=== PATIENT | male | born 2000 | race Caucasian/White ===

== ENCOUNTER 2023-08-23 01:05 | Inpatient (IN) ==
[2023-08-23] MEDS ORDERED: dilTIAZem HCl 5 MG/ML 5 ML VIAL IV ONE (01:17)
[2023-08-23] MEDS ORDERED: SODIUM CHLORIDE 0.9% 1,000 ML IV STA (01:18)
[2023-08-23] MEDS ORDERED: dilTIAZem HCl 5 MG/ML 5 ML VIAL IV STA ×2 (01:18→02:14)
[2023-08-23] MEDS ORDERED: STAT IV Infusion **Titration per Protocol STA (01:18)
--- NOTE | 2023-08-23 01:27 | Emergency Department Note ---
History of Present Illness General Chief complaint: Arrhythmia/Palpitations Stated complaint: IRREG HEART BEAT,RAPID,UNCONTROLLABLE Time Seen by Provider: 08/23/23 01:13 History of Present Illness This 22-year-old gentleman presents the ER for racing heart tonight. Patient states he was out drinking alcohol on a pub crawl tonight. 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 No drug use. Patient denies chest pain, dyspnea, abdominal pain, leg pain or swelling, flulike illness, drug use or tobacco use. Patient states he is healthy with no active medical problems. Past Med/Surg History Social History Smoking Status: Never smoker Preferred Language: Bulgarian Feels Safe at Home: Yes Review of Systems A total of 10 systems reviewed and were otherwise negative Physical Exam Vital Signs Vital Signs - 24 hr 08/23/23 01:10 08/23/23 01:15 08/23/23 01:16 Temperature 36.6 C Temperature Source Oral Pulse Rate 180 H 155 H 151 H Pulse Rate [Apical] Pulse Rhythm [Apical] Pulse Strength [Apical] Respiratory Rate 18 12 Respiratory Effort / Characteristics Respiratory Depth Respiratory Pattern Blood Pressure 145/102 H 154/126 H Blood Pressure [Right Arm] Blood Pressure Mean 116 135 Blood Pressure Mean [Right Arm] Pulse Oximetry 97 Oxygen Delivery Method Room Air Oxygen Flow Rate Sepsis Recent Fever Within 48 Hours No Sepsis New/Unexplained Change in Mental Status N/A Sepsis Action Taken by Nursing No Action Required 08/23/23 01:21 08/23/23 01:27 08/23/23 01:27 Temperature Temperature Source Pulse Rate 98 H Pulse Rate [Apical] 100 H Pulse Rhythm [Apical] Regular Pulse Strength [Apical] Normal Respiratory Rate 15 21 Respiratory Effort / Characteristics Non-Labored Respiratory Depth Normal Respiratory Pattern Regular Blood Pressure 110/83 Blood Pressure [Right Arm] 110/83 Blood Pressure Mean 92 Blood Pressure Mean [Right Arm] 92 Pulse Oximetry 96 98 Oxygen Delivery Method Room Air Room Air Oxygen Flow Rate 98 Sepsis Recent Fever Within 48 Hours Sepsis New/Unexplained Change in Mental Status Sepsis Action Taken by Nursing 08/23/23 01:30 08/23/23 01:45 08/23/23 02:00 Temperature Temperature Source Pulse Rate 108 H 115 H 126 H Pulse Rate [Apical] Pulse Rhythm [Apical] Pulse Strength [Apical] Respiratory Rate 14 17 23 Respiratory Effort / Characteristics Respiratory Depth Respiratory Pattern Blood Pressure 141/105 H 141/96 H 128/100 Blood Pressure [Right Arm] Blood Pressure Mean 117 111 109 Blood Pressure Mean [Right Arm] Pulse Oximetry 97 96 95 Oxygen Delivery Method Oxygen Flow Rate Sepsis Recent Fever Within 48 Hours Sepsis New/Unexplained Change in Mental Status Sepsis Action Taken by Nursing VITALS: Vitals are noted on the nurse's note and reviewed by myself. Vital signs tachycardic GENERAL: Pleasant, in no acute distress, nondiaphoretic, well-developed well- nourished. SKIN: Capillary reflex less than 2 seconds. HEENT: Normocephalic. PERRLA. EOMI. Nares patent. Mucous membranes moist. Neck is supple without nuchal rigidity. HEART: Tachycardic irregularly irregular LUNGS: Clear to auscultation bilaterally without wheezes, rales or rhonchi. No retractions or accessory muscle use. ABDOMEN: Positive bowel sounds x 4. Normal tympanic percussion. Soft, nontender, without masses or organomegaly. Seals sign negative. No guarding or rebound tenderness. MUSCULOSKELETAL: No gross musculoskeletal defects. NEURO: Patient was alert and oriented to person place and time. No focal neurological deficits. Course Administered Medications Sodium Chloride (Nss) 1,000 mls @ 999 mls/hr IV .Q1H1M STA Stop: 08/23/23 02:18 Last Admin: 08/23/23 01:20 Dose: 999 mls/hr Documented By: ANA Diltiazem HCl 125 mg/ Dextrose 125 mls @ 5 mls/hr IV .Q24H [facility]; Protocol Stop: 09/22/23 01:29 Last Admin: 08/23/23 01:45 Dose: 5 mg/hr, 5 mls/hr Documented By: AJAY Co-signed By: TIFFANIE Discontinued Medications Diltiazem HCl (Diltiazem Hcl 5 Mg/Ml 5 Ml Vial) Confirm Administered Dose 25 mg IV .STK-MED ONE Stop: 08/23/23 01:18 Last Admin: 08/23/23 01:20 Dose: Not Given Documented By: ANA Diltiazem HCl (Diltiazem Hcl 5 Mg/Ml 5 Ml Vial) 20 mg IV NOW STA Stop: 08/23/23 01:19 Last Admin: 08/23/23 01:20 Dose: 20 mg Documented By: ANA Co-signed By: AJAY Critical Care Time Critical Care Time: Yes Total Critical Care Time: 35 I have personally spent 35 minutes of critical care time in the direct management of this patient. This includes bedside care, interpretation of diagnostic studies, and testing, discussion with consultants, patient, and family members, and other required patient management activities. This 35 minutes is in excess of all separately billable procedures. Medical Decision Making Medical Records Attestation: I reviewed the patient's medical records. Home Medications Current Medication List: was personally reviewed by il Laboratory Data Attestation: I reviewed the patient's lab results. 08/23/23 01:16 08/23/23 01:16 Lab Results 08/23/23 Range/Units 01:16 WBC 9.65 (4.8-10.8) K/ul RBC 5.95 (4.70-6.10) M/uL Hgb 17.2 (14.0-18.0) g/dl Hct 51.2 (42.0-52.0) % MCV 86.1 (80.0-100.0) fL MCH 28.9 (25.0-34.0) pg MCHC 33.6 (32.0-36.0) g/dL RDW Std Deviation 38.2 (36.4-46.3) fL RDW Coeff of Arely 12.2 (11.5-14.5) % Plt Count 314 (130-400) K/uL MPV 9.7 (9.4-12.4) fL Immature Gran % (Auto) 0.4 % Neut % (Auto) 42.4 % Lymph % (Auto) 41.7 % Mcintosh % (Auto) 10.3 % Eos % (Auto) 4.7 % Baso % (Auto) 0.5 % Neut # (Auto) 4.10 (1.40-6.50) K/uL Lymph # (Auto) 4.02 H (1.20-3.40) K/uL Mcintosh # (Auto) 0.99 H (0.11-0.59) K/uL Eos # (Auto) 0.45 (0.00-0.50) K/uL Baso # (Auto) 0.05 (0.00-0.20) K/uL Immature Gran # (Auto) 0.04 (0.01-0.20) K/uL Sodium 142 (136-145) mmol/L Potassium 3.2 L (3.5-5.1) mmol/L Chloride 104 (98-107) mmol/L Carbon Dioxide 28 (21-32) mmol/L Anion Gap 10 (3-11) BUN 11 (6-23) mg/dl Creatinine 1.03 (0.6-1.4) mg/dl Est Cr Clr Drug Dosing 125.2 ml/min Est GFR ( Amer) 118.1 ml/min Est GFR (Non-Af Amer) 101.9 ml/min BUN/Creatinine Ratio 10.7 (10-20) Glucose 104 H (70-99(Fasting)) mg/dl Calcium 10.1 (8.6-10.3) mg/dl Magnesium 2.1 (1.7-2.4) mg/dl Total Bilirubin 0.4 (0.2-1.0) mg/dl AST 20 (13-39) U/L ALT 26 (7-52) U/L Alkaline Phosphatase 77 (34-104) U/L Troponin I High Sens 2.7 (0-20) pg/ml Total Protein 8.0 (6.0-8.3) gm/dl Albumin 5.2 H (3.4-5.0) gm/dl Globulin 2.8 (2.5-4.0) gm/dl Albumin/Globulin Ratio 1.9 (0.9-2) TSH 2.020 (0.300-4.500) uIu/ml Ethyl Alcohol mg/dL 172.3 H (<10.0) mg/dl Imaging Data Attestation: I personally reviewed and interpreted this imaging study as follows: MDM Narrative Prior records/ancillary studies reviewed. Triage Nursing notes reviewed. Additional history obtained from nursing. The patient's history was concerning for palpitations. Differential diagnosis: Etiologies such as premature contractions, electrolyte abnormality, cardiac dysrhythmia, thyroid dysfunction, pulmonary embolism, infection, gastrointestinal, as well as others were entertained. Physical examination: Benign as above. ER treatment provided: IV fluids, Cardizem and Cardizem drip On reassessment the patient felt better. Diagnostic interpretation by me: An order was placed for continuous cardiac monitoring. The monitor shows a rate of 60-1 80 with a A-fib rhythm per my interpretation. The electrocardiogram was ordered for palpitaions ECG: Irregularly irregular with no acute ST-T wave changes, rate of 153. Impression A-fib with RVR independently interpreted by myself The labs Independently Interpreted by myself revealed negative troponin. Hypokalemia this was replaced orally. No worrisome leukocytosis. Stable H&H Euthyroid Imaging studies: Chest x-ray with no acute consolidation, pneumothorax or free air per my independent interpretation Consultation: A consultation was placed with the hospitalist. The case was discussed and diagnostics were reviewed. The patient was evaluated in the ER for further treatment. CHADS2 Score Sex (male 0, female 1): 0 Congestive HF (1): 0 Hypertension (1) :0 Age >75 years (1) :0 Diabetes mellitus (1):0 Stroke/TIA/TE (2): 0 Score: 0 CHADS2 Unadjusted ischemic stroke rate (% per year) 0: 0.6% 1: 3.0% 2: 4.2% 3: 7.1% 4: 11.1% 5: 12.5% 6: 13.0% This appears to be consistent with new onset A-fib with RVR. This could be holiday heart. Patient has been drinking alcohol heavily past few days. Patient is agreeable treatment plan of admission. Medicine was consulted and the case discussed. Patient was admitted to the medical service for further evaluation and workup. Patient's heart rate improved with Cardizem and drip. He was medicated as above. By the evaluation outlined above emergent etiologies such as electrolyte abnormality, thyroid dysfunction, pulmonary embolism, infection, as well as others were deemed relatively unlikely. The pt informed about the findings as listed above. All questions were answered and pleased with the treatment. The chart was completed utilizing [employer] Speech voice recognition software. Grammatical errors, random word insertions, pronoun errors, and incomplete sentences are an occassional consequence of this system due to software limitations, ambient noise, and hardware issues. Any formal questions or concerns about the content, text, or information contained within the body of this dictation should be directly addressed to the physician pastrycook's assistant for clarification. Impression & Plan New onset atrial fibrillation, Atrial fibrillation with rapid ventricular response, Hypokalemia, Alcohol intoxication Discharge Plan Visit Data Chief Complaint: Arrhythmia/Palpitations Stated Complaint: IRREG HEART BEAT,RAPID,UNCONTROLLABLE ED Provider: Gem Cortez ED Midlevel Provider: Muna Delcid Discharge Problem: New onset atrial fibrillation, Atrial fibrillation with rapid ventricular response, Hypokalemia, Alcohol intoxication Patient Disposition: Admitted As Inpatient Condition: Good Forms Stand Alone Forms: [facility] Referrals Referrals: PCP,NO [Primary Care Provider] -
[2023-08-23] MEDS ORDERED: dilTIAZem HCL 125 MG in DEXTROSE 5% 100 ML IV SCH (01:30)
[2023-08-23 01:40] LABS: Basophils # (auto) 0.05 K/uL (0.00-0.20); Basophils % (auto) 0.5 %; Eosinophils # (auto) 0.45 K/uL (0.00-0.50); Eosinophils % (auto) 4.7 %; Hematocrit (blood only) 51.2 % (42.0-52.0); Hemoglobin 17.2 g/dl (14.0-18.0); Immature Granulocytes # (auto) 0.04 K/uL (0.01-0.20); Immature Granulocytes % (auto) 0.4 %; Lymphocytes # (auto) 4.02 K/uL (1.20-3.40); Lymphocytes % (auto) 41.7 %; Mean Corpuscular Hemoglobin 28.9 pg (25.0-34.0); Mean Corpuscular Hgb Conc 33.6 g/dL (32.0-36.0); Mean Corpuscular Volume 86.1 fL (80.0-100.0); Mean Platelet Volume 9.7 fL (9.4-12.4); Monocytes # (auto) 0.99 K/uL (0.11-0.59); Monocytes % (auto) 10.3 %; Neutrophils % (auto) 42.4 %; Platelet Count 314 K/uL (130-400); RDW Coefficient of Variation 12.2 % (11.5-14.5); RDW Standard Deviation 38.2 fL (36.4-46.3); Red Blood Count 5.95 M/uL (4.70-6.10); White Blood Count 9.65 K/ul (4.8-10.8)
[2023-08-23 01:58] LABS: Albumin Globulin Ratio 1.9 (0.9-2); Albumin Level 5.2 gm/dl (3.4-5.0); BUN Creatinine Ratio 10.7 (10-20); Bilirubin,Total 0.4 mg/dl (0.2-1.0); Calcium 10.1 mg/dl (8.6-10.3); Creatinine Clr Calc Pharmacy 125.2 ml/min; Est GFR (African American) 118.1 ml/min; Est GFR (Non-African American) 101.9 ml/min; Globulin 2.8 gm/dl (2.5-4.0); Magnesium 2.1 mg/dl (1.7-2.4); Potassium 3.2 mmol/L (3.5-5.1)
[2023-08-23 02:04] LABS: Troponin I High Sensitivity 2.7 pg/ml (0-20)
[2023-08-23] MEDS ORDERED: POTASSIUM CHLORIDE 10 MEQ TABCR PO STA (02:08)
[2023-08-23 02:14] LABS: Thyroid Stimulating Hormone 2.02 uIu/ml (0.300-4.500)
[2023-08-23] MEDS ORDERED: METOPROLOL TARTRATE 25 MG TAB PO STA (02:16)
[2023-08-23] MEDS ORDERED: Patient's ALLERGY Info needs ENTERED STA (02:20)
[2023-08-23] MEDS ORDERED: SODIUM CHLOR 0.45% + 20MEQ KCL 20 MEQ/1,000 ML BAG IV STA (02:21)
[2023-08-23 02:43] LABS: Partial Thromboplastin Time 29 Seconds (21-31)
--- NOTE | 2023-08-23 03:01 | History & Physical Report ---
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 IV heparin Full code Text document was generated using [employer] voice recognition software. It may contain grammatical or spelling errors. Kindly contact undersigned for clarification of any documentation item in question. History of Present Illness Chief Complaint: Palpitations Primary Care Provider: NO PCP History obtained from patient and records. Patient is a resident of [facility] who is in town to celebrate the college graduation of a friend. No significant medical history. Patient was celebrating with his buddies at a local bar last night when he experienced palpitations, heart racing sensation. No actual chest pain or shortness of breath. Might have been drinking alcohol more than usual. Patient denies alcohol abuse. No previous episodes. Patient noted to be in rapid A-fib upon arrival at the ER. IV Cardizem bolus followed by infusion initiated at the ER. 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 Allergies Allergy/AdvReac Type Severity Reaction Status Date / Time grass pollen Allergy "wood Verified 08/23/23 03:22 grass" Home Medications Medication Instructions Recorded Confirmed Type Beet Root 2 tabs PO QAM 08/23/23 08/23/23 History ashwagandha root extract 300 mg 300 mg PO QAM 08/23/23 08/23/23 History tablet Past Med/Surg History Social History Smoking Status: Never smoker Tobacco Type: Cigars Second Hand Exposure: No; Do You Dip or Chew Tobacco: No; Hx Alcohol Use: Yes Alcohol type: hard liquor Hx Substance Use: No Preferred Language: Namibian Communication Ability: Effective Art Psychotherapist Required: No Beliefs That Will Affect Care: None Current Living Situation: Parent Other Information That Helps Us Care for You: No Feels Safe at Home: Yes Safety Concerns: Feels Safe At This Time Review of Systems Review of Systems: As per HPI, all other systems reviewed and negative Physical Exam Physical Exam: GENERAL: Comfortable, pleasant, alcoholic fetor, no respiratory distress SKIN: Normal color, warm HEENT: [place] palpebral conjunctivae, no ptosis, dry buccal mucosa NECK : Supple, no tenderness CHEST : CTA, no tenderness HEART : Irregular, tachycardic, no obvious murmurs ABDOMEN: no distention, nontender EXTREMITIES : No LE swelling/tenderness, no other conspicuous deformities noted NEUROLOGIC : Coherent, no facial asymmetry, no other gross focality Results & Data Results & Data Vital Signs (Past 12 Hours) Vital Signs Temp Pulse Pulse Resp BP BP Pulse Ox 08/23/23 02:45 112 H 17 115/86 97 08/23/23 02:30 91 H 15 113/84 95 08/23/23 02:15 130 H 16 121/95 93 08/23/23 02:00 126 H 23 128/100 95 08/23/23 01:45 115 H 17 141/96 H 96 08/23/23 01:30 108 H 14 141/105 H 97 08/23/23 01:27 100 H 21 110/83 98 08/23/23 01:27 08/23/23 01:21 98 H 15 110/83 96 08/23/23 01:16 151 H 12 154/126 H 08/23/23 01:15 155 H 08/23/23 01:10 36.6 C 180 H 18 145/102 H 97 O2 Del Method O2 Flow Rate 08/23/23 02:45 08/23/23 02:30 08/23/23 02:15 08/23/23 02:00 08/23/23 01:45 08/23/23 01:30 08/23/23 01:27 Room Air 08/23/23 01:27 Room Air 98 08/23/23 01:21 08/23/23 01:16 08/23/23 01:15 08/23/23 01:10 Room Air Laboratory Results Laboratory Results WBC 9.65 K/ul (4.8-10.8) 08/23/23 01:16 RBC 5.95 M/uL (4.70-6.10) 08/23/23 01:16 Hgb 17.2 g/dl (14.0-18.0) 08/23/23 01:16 Hct 51.2 % (42.0-52.0) 08/23/23 01:16 MCV 86.1 fL (80.0-100.0) 08/23/23 01:16 MCH 28.9 pg (25.0-34.0) 08/23/23 01:16 MCHC 33.6 g/dL (32.0-36.0) 08/23/23 01:16 RDW Std Deviation 38.2 fL (36.4-46.3) 08/23/23 01:16 RDW Coeff of Arely 12.2 % (11.5-14.5) 08/23/23 01:16 Plt Count 314 K/uL (130-400) 08/23/23 01:16 MPV 9.7 fL (9.4-12.4) 08/23/23 01:16 Immature Gran % (Auto) 0.4 % 08/23/23 01:16 Neut % (Auto) 42.4 % 08/23/23 01:16 Lymph % (Auto) 41.7 % 08/23/23 01:16 Johnson % (Auto) 10.3 % 08/23/23 01:16 Eos % (Auto) 4.7 % 08/23/23 01:16 Baso % (Auto) 0.5 % 08/23/23 01:16 Neut # (Auto) 4.10 K/uL (1.40-6.50) 08/23/23 01:16 Lymph # (Auto) 4.02 K/uL (1.20-3.40) H 08/23/23 01:16 Johnson # (Auto) 0.99 K/uL (0.11-0.59) H 08/23/23 01:16 Eos # (Auto) 0.45 K/uL (0.00-0.50) 08/23/23 01:16 Baso # (Auto) 0.05 K/uL (0.00-0.20) 08/23/23 01:16 Immature Gran # (Auto) 0.04 K/uL (0.01-0.20) 08/23/23 01:16 APTT 29 Seconds (21-31) 08/23/23 01:16 PTT Ratio 1.0 08/23/23 01:16 Sodium 142 mmol/L (136-145) 08/23/23 01:16 Potassium 3.2 mmol/L (3.5-5.1) L 08/23/23 01:16 Chloride 104 mmol/L (98-107) 08/23/23 01:16 Carbon Dioxide 28 mmol/L (21-32) 08/23/23 01:16 Anion Gap 10 (3-11) 08/23/23 01:16 BUN 11 mg/dl (6-23) 08/23/23 01:16 Creatinine 1.03 mg/dl (0.6-1.4) 08/23/23 01:16 Est Cr Clr Drug Dosing 125.2 ml/min 08/23/23 01:16 Est GFR ( Amer) 118.1 ml/min 08/23/23 01:16 Est GFR (Non-Af Amer) 101.9 ml/min 08/23/23 01:16 BUN/Creatinine Ratio 10.7 (10-20) 08/23/23 01:16 Glucose 104 mg/dl (70-99(Fasting)) H 08/23/23 01:16 Calcium 10.1 mg/dl (8.6-10.3) 08/23/23 01:16 Magnesium 2.1 mg/dl (1.7-2.4) 08/23/23 01:16 Total Bilirubin 0.4 mg/dl (0.2-1.0) 08/23/23 01:16 AST 20 U/L (13-39) 08/23/23 01:16 ALT 26 U/L (7-52) 08/23/23 01:16 Alkaline Phosphatase 77 U/L (34-104) 08/23/23 01:16 Troponin I High Sens 2.7 pg/ml (0-20) 08/23/23 01:16 Total Protein 8.0 gm/dl (6.0-8.3) 08/23/23 01:16 Albumin 5.2 gm/dl (3.4-5.0) H 08/23/23 01:16 Globulin 2.8 gm/dl (2.5-4.0) 08/23/23 01:16 Albumin/Globulin Ratio 1.9 (0.9-2) 08/23/23 01:16 TSH 2.020 uIu/ml (0.300-4.500) 08/23/23 01:16 Ethyl Alcohol mg/dL 172.3 mg/dl (<10.0) H 08/23/23 01:16 Diagnostic Findings Chest x-ray as per my interpretation no congestion EKG as per my interpretation : Rate 150, A-fib, NSR, normal axis, no ischemia
[2023-08-23] MEDS ORDERED: Heparin IV Adult Wt-Based Standard *NO* INITIAL Bolus Protocol IV STA (03:13)
[2023-08-23] MEDS ORDERED: PROMETHAZINE HCL 6.25 MG in SODIUM CHLORIDE 0.9% 50 ML IV PRN (03:14)
[2023-08-23] MEDS ORDERED: oxyCODONE HCL IR 5 MG TAB (IMMEDIATE RELEASE) PO PRN (03:14)
[2023-08-23] MEDS ORDERED: LORazepam 0.5 MG TAB PO PRN (03:14)
[2023-08-23] MEDS ORDERED: HEPARIN SODIUM/DEXTROSE 25,000 UNITS/500 ML BAG IV SCH (03:30)
[2023-08-23] MEDS ORDERED: POTASSIUM CHLORIDE CRTAB 20 MEQ TABCR PO ONE (05:00)
[2023-08-23] MEDS ORDERED: ATROPINE SULFATE 0.1 MG/ML 10ML SYR IV ONE (05:33)
[2023-08-23] MEDS ORDERED: RAPID SEQUENCE INDUCTION BAG ONE (05:35)
[2023-08-23] MEDS ORDERED: NOREPINEPHRINE/D5W 4 MG/250 ML IV ONE (05:36)
--- NOTE | 2023-08-23 05:41 | Communication Note ---
Date of Service: August 23, 2023 Code gabino called around 5:30 AM SBP 50s, heart rate 20s Patient near syncopal. IV Cardizem stopped IVF bolus administered Atropine 1 dose given for symptomatic bradycardia. SBP 80s, heart rate 80s after 1 dose atropine EKG as per my interpretation rate 70, NSR, normal axis, no ischemia Hold IV heparin given A-fib conversion to NSR Hold AV levy blockers for now until patient seen by cardiology.
[2023-08-23] MEDS ORDERED: fentaNYL citrate PF 100 MCG/2 ML VIAL ONE (05:46)
[2023-08-23] MEDS ORDERED: PROPOFOL IV EMULSION 10 MG/ML 100 ML VIAL IV ONE (05:47)
[2023-08-23] MEDS ORDERED: METOCLOPRAMIDE HCL INJ 5 MG/ML 2 ML VIAL IV STA (06:06)
[2023-08-23] MEDS ORDERED: METOCLOPRAMIDE HCL INJ 5 MG/ML 2 ML VIAL ONE (06:07)
[2023-08-23] MEDS ORDERED: POTASSIUM CHLORIDE / WTR 10 MEQ/100 ML PLCT IV ONE (06:15)
[2023-08-23] MEDS ORDERED: fentaNYL citrate PF 100 MCG/2 ML VIAL IV STA (06:25)
[2023-08-23] MEDS ORDERED: PROPOFOL IV EMULSION 10 MG/ML 100 ML VIAL IV STA (06:25)
--- NOTE | 2023-08-23 06:57 | XRay Report ---
SINGLE VIEW CHEST CLINICAL HISTORY: Palpitations. FINDINGS: An AP, portable, upright chest radiograph is obtained. No prior studies are available for c omparison at the time of dictation. The examination is degraded by portable technique and apical lord otic positioning. The cardiomediastinal silhouette is unremarkable. The lungs and pleural spaces are clear. No pneumothorax is seen. The bony thorax is grossly intact. IMPRESSION: No active disease in the chest. ACT 112: Negative or not required by law. Electronically signed by: Alexy Guajardo M.D. 08/23/2023 6:56 AM
[2023-08-23] MEDS ORDERED: POTASSIUM CHLORIDE 20 MEQ in LACTATED RINGER'S 1,000 ML IV ONE (07:00)
--- NOTE | 2023-08-23 07:14 | Procedure Note ---
Procedure Note Date of Service August 23, 2023 Note Procedure date: Noted above Procedure: Elective cardioversion Pre-procedure Diagnosis: Atrial fibrillation Post-procedure Diagnosis: same as above Prior to Procedure: Informed Consent: The risks, benefits, indications, potential complications, and alternatives were explained to the patient and informed consent obtained. 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 The patient had been drinking this evening; however, he appears to be in sound mind, able to manipulate information and without obtaining his social history would not have been led to believe that he was consuming any alcohol recently. Accordingly I feel the benefits of cardioversion outweigh the risks. Attending Staff: Reva Monterroso DO Anesthesia: 100 mcg fentanyl IV x 1, propofol total 40 mg IV given in 10 mg aliquots The identity of the patient was confirmed and a bedside time out was performed. Description of Procedure: After preparation with airway adjuncts, cardiovascular monitoring monitoring paddles were placed. A single synchronized cardioversion of 50 J was performed. Patient converted to a sinus rhythm, and blood pressure increased from 100 systolic to 120 systolic. Complications: None Patient tolerated the procedure well. Coding CPT Codes Resuscitation - Resuscitation: [id number] Cardioversion electric, ext ([id number]) [facility] [place] Procedure Codes (Charges) Resuscitation Resuscitation: 61343 Cardioversion electric, ext
--- NOTE | 2023-08-23 07:18 | Pre Anesthesia Assessment ---
Date of Service August 23, 2023 Pre Sedation Assessment Vital Signs Temp Pulse Pulse Resp BP BP Pulse Ox 08/23/23 04:00 129/88 08/23/23 04:00 92 H 20 96 08/23/23 03:58 37 C 96 H 22 129/88 96 08/23/23 03:50 37.0 C 122/80 08/23/23 03:50 90 15 08/23/23 03:30 96 H 17 114/83 95 08/23/23 03:15 111 H 12 123/81 95 08/23/23 03:00 116 H 14 110/81 95 08/23/23 02:45 112 H 17 115/86 97 08/23/23 02:30 91 H 15 113/84 95 08/23/23 02:15 130 H 16 121/95 93 08/23/23 02:00 126 H 23 128/100 95 08/23/23 01:45 115 H 17 141/96 H 96 08/23/23 01:30 108 H 14 141/105 H 97 08/23/23 01:27 100 H 21 110/83 98 08/23/23 01:27 08/23/23 01:21 98 H 15 110/83 96 08/23/23 01:16 151 H 12 154/126 H 08/23/23 01:15 155 H 08/23/23 01:10 36.6 C 180 H 18 145/102 H 97 O2 Del Method O2 Flow Rate 08/23/23 04:00 08/23/23 04:00 Room Air 08/23/23 03:58 Room Air 08/23/23 03:50 08/23/23 03:50 08/23/23 03:30 08/23/23 03:15 08/23/23 03:00 08/23/23 02:45 08/23/23 02:30 08/23/23 02:15 08/23/23 02:00 08/23/23 01:45 08/23/23 01:30 08/23/23 01:27 Room Air 08/23/23 01:27 Room Air 98 08/23/23 01:21 08/23/23 01:16 08/23/23 01:15 08/23/23 01:10 Room Air Cardiovascular Additional Comments: Irregularly irregular rhythm, intermittently tachycardic up to the 1-teens Respiratory normal respiratory effort, lungs clear to auscultation Pre-Sedation Airway Assessment Smoking Status: Never smoker Hx Sleep Apnea: No Hx Difficult Intubation: No Short, Thick Neck: No Thyromental Distance: > or= 3.5 Finger Breadths Oral Cavity: + WNL Mallampati Class: I ASA: ASA1E NPO Status Date of Last Intake of Fluids: 08/23/23 Time of Last Intake of Fluids: 01:00 Date of Last Intake of Solid Food: 08/22/23 Time of Last Intake of Solid Foods: 17:00 Notes The planned sedation has been discussed with the patient. Informed Consent was obtained. I have identified the patient, determined the appropriateness of sedation and have assessed the patient immediately prior to the procedure. We have discussed the risks and benefits of sedation while not being completely within the greater than 6-hour n.p.o. window. Nearly 12 hours past since last intake of solid food, patient had consumed alcohol up until approximately 1 AM. Patient had just had symptomatic hypotension while receiving medical treatment for atrial fibrillation, given 10 mg of Reglan IV. Head of the bed was kept greater than 30 degrees during the entirety of this procedure All medicine(s) and interventions are by my order.
--- NOTE | 2023-08-23 07:20 | Post Anesthesia Assessment ---
Date of Service August 23, 2023 Post Sedation Assessment Vital Signs Temp Pulse Pulse Resp BP BP Pulse Ox 08/23/23 04:00 129/88 08/23/23 04:00 92 H 20 96 08/23/23 03:58 37 C 96 H 22 129/88 96 08/23/23 03:50 37.0 C 122/80 08/23/23 03:50 90 15 08/23/23 03:30 96 H 17 114/83 95 08/23/23 03:15 111 H 12 123/81 95 08/23/23 03:00 116 H 14 110/81 95 08/23/23 02:45 112 H 17 115/86 97 08/23/23 02:30 91 H 15 113/84 95 08/23/23 02:15 130 H 16 121/95 93 08/23/23 02:00 126 H 23 128/100 95 08/23/23 01:45 115 H 17 141/96 H 96 08/23/23 01:30 108 H 14 141/105 H 97 08/23/23 01:27 100 H 21 110/83 98 08/23/23 01:27 08/23/23 01:21 98 H 15 110/83 96 08/23/23 01:16 151 H 12 154/126 H 08/23/23 01:15 155 H 08/23/23 01:10 36.6 C 180 H 18 145/102 H 97 O2 Del Method O2 Flow Rate 08/23/23 04:00 08/23/23 04:00 Room Air 08/23/23 03:58 Room Air 08/23/23 03:50 08/23/23 03:50 08/23/23 03:30 08/23/23 03:15 08/23/23 03:00 08/23/23 02:45 08/23/23 02:30 08/23/23 02:15 08/23/23 02:00 08/23/23 01:45 08/23/23 01:30 08/23/23 01:27 Room Air 08/23/23 01:27 Room Air 98 08/23/23 01:21 08/23/23 01:16 08/23/23 01:15 08/23/23 01:10 Room Air Recovery Score Activity: Moves 4 extremities Respiration: Deep Breath/Cough Circulation: +/-20% PreAnes Value Consciousness: Fully Awake Oxygen Saturation: > 92% On Room Air Discharge Sedation Level of Care: Higher Level of Care Post Sedation Plan On clinical assessment, the patient appears to have tolerated the sedation without complications. Patient is recovering as anticipated. Patient will continue to be monitored by nursing and may be discharged when sedation discharge criteria are met per below protocol. Upon Completions of procedure up to 15 minutes continue every 5 minute vital si gns and the P.A.R. score; then discharge to a Phase I or Fast Track to Phase II per the following guidelines: * Discharge Patient to appropriate Phase II area if PAR is 8 or greater or return to pre- procedure baseline. The post - procedure orders will be as directed. * If PAR score is less than 8 or not return to pre-procedure baseline then patient will follow Phase I monitoring till PAR is reached for Phase II. The Phase I may be done in procedure room or may call to secure a Phase I area. * If naloxone or flumazenil are used for reversal, hold in Phase I for continued monitoring from when last reversal dose was given for a minimum of 60 minutes or longer pending the nurse and/or physician discretion of patient condition before discharge to Phase II. Please call the Sedation Physician to re-evaluate and complete post-note for discharge to Phase II area. Do NOT discharge from procedure sedation or Phase 1 until post- sedation evaluation note is complete by procedure /sedation MD Sedation Discharge Instructions to be given to the patient at discharge to home. Supervising Physician Co-Signing Physician Notes Procedural start time 0620 Procedural end time 0625 Anesthesia: 100 mcg fentanyl IV x 1, propofol total 40 mg IV given in 10 mg aliquots [facility] Procedure Codes (Charges) Sedation/Anesthesia Procedure 1: Sedation/Anesthesia: 05808 Mod Sedation by the same physician;Init15 Min Child Age 5 & Up Total Sedation Time (minutes): 5
--- NOTE | 2023-08-23 07:26 | Communication Note ---
Date of Service: August 23, 2023 HPI: Patient was a code purple for bradycardia and hypotension. 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 He reported that he was asked to leave an establishment which had never occurred to him before he had what he describes as arrest of adrenaline and then there became a fluttering in his chest with an irregular heartbeat which had never occurred in his life up to this point. He sought treatment in the emergency department for which he was started on Cardizem for atrial fibrillation with rapid ventricular response. He had also been started on heparin. Physical exam: General: Alert. Pale Skin: Warm, diaphoretic Head: Atraumatic Ears, nose, mouth and throat: airway patent Cardiovascular: Irregularly irregular rhythm, bradycardic Respiratory: no respiratory distress Gastrointestinal: Non distended Musculoskeletal: No deformity Assessment Hypotension secondary to medication effect with atrial fibrillation Plan: Discontinue Cardizem, volume expansion with crystalloid Discussed risks and benefits of cardioversion as we were setting up for emergent cardioversion given significant hypotension -Patient's blood pressure improved; however, patient wished to proceed with cardioversion -Given the abrupt nature of the patient's symptoms and a reassuring histo ry benefits outweigh risk of embolic phenomenon and adverse effects related to hypotension and medications administered we proceeded with cardioversion. Patient converted to normal sinus rhythm after 1 synchronized 50 J cardioversion. Critical care will sign off at this time Coding Level of Care Code None
[2023-08-23 08:34] LABS: Appearance Urine Clear (Clear); Bilirubin Urine Negative (Negative); Blood Urine Negative (Negative); Color Urine Yellow; Glucose Urine UA Negative (Negative); Ketones Urine Trace (Negative); Leukocyte Esterase Urine Negative (Negative); Nitrite Urine Negative (Negative); Protein Urine Negative (Negative); Urobilinogen Urine Negative (Negative)
[2023-08-23 09:04] LABS: Amphetamines+Metham, Urine Neg (Neg); Barbiturates, Urine Neg (Neg); Benzodiazepine, Urine Neg (Neg); Cocaine, Urine Neg (Neg); MDMA (Ecstacy), Urine Neg (Neg); Marijuana, Urine Neg (Neg); Methadone, Urine Neg (Neg); Opiate, Urine Neg (Neg); Phencyclidine, Urine Neg (Neg)
--- NOTE | 2023-08-23 10:17 | Cardiology Consultation ---
Date of Consultation August 23, 2023 Assessment & Plan (1) Atrial fibrillation with rapid ventricular response: Plan This is a 22 year old man with no significant past medical history, on no medications, who was admitted after developing Afib with RVR after a night of binge drinking to celebrate his friend's graduation. He was DCCV early this AM and is currently in NSR. He denies previous episodes of afib with RVR. No N/V/DEY; afebrile. No PND or orthopnea. He denies family history of afib or cardiomyopathy/HF. He has no known DM. 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 His [id number] score is zero. 1. Afib with RVR -now s/p DCCV with islam of NSR -TTE shows a structurally normal heart with normal LVEF -his [id number] is zero. -he is at low risk for a thromboembolism given his low score -however, he is at elevated risk for thromboembolism regardless of [id number] score post DCCV and therefore should start a DOAC and continue x 4 weeks (Eliquis bid) -normal TTE, however there is evidence that Afib can predate phenotypic expression of genetic cardiomyopath (TTN, etc). Recommend outpatient genetic cardiomyopathy panel. I provided 85 min of care to the patient in regards to his atrial fibrillation. History of Present Illness Reason for Consultation: Afib with RVR Attending Physician: Candice Park MD History of Present Illness This is a 22 year old man with no significant past medical history, on no medications, who was admitted after developing Afib with RVR after a night of binge drinking to celebrate his friend's graduation. He was DCCV early this AM and is currently in NSR. He denies previous episodes of afib with RVR. No N/V/DEY; afebrile. No PND or orthopnea. He denies family history of afib or cardiomyopathy/HF. He has no known DM. 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 His [id number] score is zero. Allergies Allergy/AdvReac Type Severity Reaction Status Date / Time grass pollen Allergy "wood Verified 08/23/23 03:22 grass" Home Medications Medication Instructions Recorded Confirmed Type Beet Root 2 tabs PO QAM 08/23/23 08/23/23 History ashwagandha root extract 300 mg 300 mg PO QAM 08/23/23 08/23/23 History tablet Patient History Social History Smoking Status: Never smoker Tobacco Type: Cigars Second Hand Exposure: No; Do You Dip or Chew Tobacco: No; Hx Alcohol Use: Yes Alcohol type: hard liquor Hx Substance Use: No Preferred Language: Croatian Communication Ability: Effective Director Of Speech Pathology Required: No Beliefs That Will Affect Care: None Current Living Situation: Parent Other Information That Helps Us Care for You: No Feels Safe at Home: Yes Safety Concerns: Feels Safe At This Time Review of Systems Review of Systems: A comprehensive review of systems is otherwise negative. Physical Exam Physical Exam: GEN: AAOx3; NAD HEENT: no JVD CV: RRR; S1+S2; no M/R/G PULM: CTA b/l; no W/R/R ABD: soft; NTND EXT: no lower extremity edema. Results & Data Vital Signs (Past 12 Hours) Vital Signs Temp Pulse Pulse Resp BP BP Pulse Ox 08/23/23 04:00 129/88 08/23/23 04:00 92 H 20 96 08/23/23 03:58 37 C 96 H 22 129/88 96 08/23/23 03:50 37.0 C 122/80 08/23/23 03:50 90 15 08/23/23 03:30 96 H 17 114/83 95 08/23/23 03:15 111 H 12 123/81 95 08/23/23 03:00 116 H 14 110/81 95 08/23/23 02:45 112 H 17 115/86 97 08/23/23 02:30 91 H 15 113/84 95 08/23/23 02:15 130 H 16 121/95 93 08/23/23 02:00 126 H 23 128/100 95 08/23/23 01:45 115 H 17 141/96 H 96 08/23/23 01:30 108 H 14 141/105 H 97 08/23/23 01:27 100 H 21 110/83 98 08/23/23 01:27 08/23/23 01:21 98 H 15 110/83 96 08/23/23 01:16 151 H 12 154/126 H 08/23/23 01:15 155 H 08/23/23 01:10 36.6 C 180 H 18 145/102 H 97 O2 Del Method O2 Flow Rate 08/23/23 04:00 08/23/23 04:00 Room Air 08/23/23 03:58 Room Air 08/23/23 03:50 08/23/23 03:50 08/23/23 03:30 08/23/23 03:15 08/23/23 03:00 08/23/23 02:45 08/23/23 02:30 08/23/23 02:15 08/23/23 02:00 08/23/23 01:45 08/23/23 01:30 08/23/23 01:27 Room Air 08/23/23 01:27 Room Air 98 08/23/23 01:21 08/23/23 01:16 08/23/23 01:15 08/23/23 01:10 Room Air Laboratory Results Na | 142 | | 136-145 mmol/L | K | 3.2 | L | 3.5-5.1 mmol/L | Cl | 104 | | 98-107 mmol/L | CO2 | 28 | | 21-32 mmol/L | Gap | 10 | | 3-11 | BUN | 11 | | 6-23 mg/dl | Creat | 1.03 | | 0.6-1.4 mg/dl | Creat Calc PHA | 125.2 | | ml/min | | Est. Creatinine Clearance (Mod Cockcroft-Gault) for pharmacy | dosing purposes. EGFR AA | 118.1 | | ml/min | | Units: ml/min per 1.73 meters squared | | The estimated GFR (CKD-EPI equation) has not been validated | for inpatient settings and may not be an accurate reflection | of renal function in critically ill patients or those with | rapidly changing renal function (e.g. HERBERT). EGFR JJ | 101.9 | | ml/min | | Units: ml/min per 1.73 meters squared | | The estimated GFR (CKD-EPI equation) has not been validated | for inpatient settings and may not be an accurate reflection | of renal function in critically ill patients or those with | rapidly changing renal function (e.g. HERBERT). BUN Creat Ratio | 10.7 | | 10-20 | Glu | 104 | H | 70-99(Fasting) mg/dl | Ca | 10.1 | | 8.6-10.3 mg/dl | MG | 2.1 | | 1.7-2.4 mg/dl | Total Bilirubin | 0.4 | | 0.2-1.0 mg/dl | AST | 20 | | 13-39 U/L | Alt | 26 | | 7-52 U/L | Troponin I hs | 2.7 | | 0-20 pg/ml | TP | 8.0 | | 6.0-8.3 gm/dl | Alb | 5.2 | H | 3.4-5.0 gm/dl | Globulin | 2.8 | | 2.5-4.0 gm/dl | A/G Ratio | 1.9 | | 0.9-2 | Alk Phos | 77 | | 34-104 U/L | TSH | 2.020 | | 0.300-4.500 uIu/ml | | The reference range for TSH is 0.3-4.5 uIU/ml. | Some have suggested that TSH levels >2.5 uIU/ml should be | considered abnormal, particularly in potentially symptomatic | younger individuals. | TSH levels in healthy elderly (>75 years of age) are often | at or even above the reference range. | Normal first trimester TSH <2.0 uIU/ml. | Normal second and third trimester TSH <3.0 uIU/ml. | TSH 0.5-2.0 uIU/ml is often considered the optimal | therapeutic target for replacement treatment of | hypothyroidism.
--- NOTE | 2023-08-23 13:27 | Discharge Summary ---
Discharge Summary Date of Service August 23, 2023 Notes For Next Care Provider Please ensure close cardiology follow up Cardiology recommending outpatient genetic cardiomyopathy panel. Medication Changes From Visit Discharged with Margarette vegaer pack- per Cardiology needs 4 weeks of treatment Admission HPI Per Admitting Provider History obtained from patient and records. Patient is a resident of [facility] who is in town to celebrate the college graduation of a friend. No significant medical history. Patient was celebrating with his buddies at a local bar last night when he experienced palpitations, heart racing sensation. No actual chest pain or shortness of breath. Might have been drinking alcohol more than usual. Patient denies alcohol abuse. No previous episodes. Patient noted to be in rapid A-fib upon arrival at the ER. IV Cardizem bolus followed by infusion initiated at the ER. 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 Admission Exam Per Admitting Provider GENERAL: Comfortable, pleasant, alcoholic fetor, no respiratory distress SKIN: Normal color, warm HEENT: [place] palpebral conjunctivae, no ptosis, dry buccal mucosa NECK : Supple, no tenderness CHEST : CTA, no tenderness HEART : Irregular, tachycardic, no obvious murmurs ABDOMEN: no distention, nontender EXTREMITIES : No LE swelling/tenderness, no other conspicuous deformities noted NEUROLOGIC : Coherent, no facial asymmetry, no other gross focality Principal Dx & Hospital Course #1 = Principal Diagnosis (1) Atrial fibrillation with rapid ventricular response: (2) Hypokalemia: (3) Alcohol intoxication: (4) New onset atrial fibrillation: Plan Pt is a 22yoM with no significant PMHx presenting with palpitations, found to be in atrial fibrillation with RVR after a night out drinking with friends. Atrial Fibrillation with RVR Presented with sensation of palpitations after drinking a significant amount of alcohol with friends. EKG with a fib with RVR, HR 153 on arrival Echo within normal limits Originally treatment was started with a cardizem drip, po metoprolol tartrate and heparin drip. At about 5AM, pt's systolic blood pressure dropped to the 50s, heart rate in the 20s. Patient was near syncopal. IV Cardizem was discontinued and IVF bolus was administered. Was given Atropine 1 dose for symptomatic bradycardia and pt's systolic blood pressure improved to the 80s, heart rate in the 80s after 1 dose of atropine. Pt was admitted to the ICU where he underwent cardioversion with NSR. 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 Was seen by Cardiology who recommended discharge with Eliquis for a total of FOUR WEEKS as pt at risk for thromboembolism after cardioversion. Pts [id number] was zero. Per cardiology: "normal TTE, however there is evidence that Afib can predate phenotypic expression of genetic cardiomyopath (TTN, etc). Recommend outpatient genetic cardiomyopathy panel." Pt advised to stay away from alcohol in the future until further work-up to determine a definite cause. Hypokalemia 3.2 on admission Was repleted Discharge Exam General: Alert, oriented. No acute distress Skin: No noted rashes or bruises Psych: Appropriate mood and affect Neuro: No gross deficits HEENT: NC/AT Chest: Nontender to palpation. CV: RRR, Normal s1, s2. No murmurs appreciated Resp: Breath sounds clear bilaterally, no increased effort of breathing. No crackles/rhonchi/rales. Abdomen: Soft, nontender, nondistended. No guarding. No organomegaly appreciated. Extremities: No edema in lower extremities bilaterally. Updated Medication List Medication Instructions Recorded Confirmed Type apixaban 5 mg (74 tabs) tablets in See Rx Instructions .Route 08/23/23 Rx a dose pack (Eliquis) .COMPLEX #74 ea Hospital Stay Data Consultations 08/23/23 02:09 ED Decision to Admit Stat 08/23/23 02:27 ED Decision to Admit Stat 08/23/23 03:13 Consult Cardiology Routine 08/23/23 05:50 Consult Clinical Program Coordinator Routine Diagnostic Imagining Performed Chest X-Ray 08/23/23 01:27 SINGLE VIEW CHEST CLINICAL HISTORY: Palpitations. FINDINGS: An AP, portable, upright chest radiograph is obtained. No prior studies are available for comparison at the time of dictation. The examination is degraded by portable technique and apical lordotic positioning. The cardiomediastinal silhouette is unremarkable. The lungs and pleural spaces are clear. No pneumothorax is seen. The bony thorax is grossly intact. IMPRESSION: No active disease in the chest. ACT 112: Negative or not required by law. Electronically signed by: Alexy Guajardo M.D. 08/23/2023 6:56 AM Pending Results Patient Have Any Pending Studies at Discharge: No Discharge Instructions Given to Patient (Per Discharging Provider) Mr. Awad, You had an episode where your heart was beating very quickly and in an irregular pattern. This was likely due to your recent use of alcohol. You underwent a procedure to get your heart beating in a regular pattern again, and to get your heart rate under control. Your symptoms improved and cardiology determined that you are stable for discharge. Cardiology is recommending we discharge you home with a blood thinner to take for 4 weeks as there is a chance that you could develop a blood clot after your procedure. We recommend staying away from alcohol in the future until you have further work-up to determine a definite cause of your symptoms. Please keep close follow up with a primary care provider and Cardiology after discharge. Should your symptoms return, please do not hesitate to return to the emergency room. It was a pleasure taking care of you while you were here. Total Time Total Time Spent Total Time Spent (In Minutes): > 30 minutes
[2023-08-23] MEDS ORDERED: METOPROLOL TARTRATE 25 MG TAB PO SCH (21:00)
--- NOTE | 2023-08-24 06:17 | Electrocardiogram Report ---
Test Reason : Blood Pressure : / mmHG Vent. Rate : 070 BPM Atrial Rate : 070 BPM P-R Int : 148 ms QRS Dur : 090 ms QT Int : 402 ms P-R-T Axes : 009 047 037 degrees QTc Int : 434 ms Normal sinus rhythm Normal ECG When compared with ECG of 23-AUG-2023 01:16, Sinus rhythm has replaced Atrial fibrillation Vent. rate has decreased BY [address] elevation has replaced ST depression in Anterolateral leads Confirmed by Leon Ferrara ([id number]) on 08/24/2023 6:17:32 AM Referred By: NO PCP Confirmed By:Leon Ferrara
--- NOTE | 2023-08-24 06:17 | Electrocardiogram Report ---
Test Reason : Blood Pressure : / mmHG Vent. Rate : 153 BPM Atrial Rate : 000 BPM P-R Int : 000 ms QRS Dur : 084 ms QT Int : 256 ms P-R-T Axes : 000 062 039 degrees QTc Int : 408 ms Atrial fibrillation with rapid ventricular response Nonspecific ST abnormality Abnormal ECG No previous ECGs available Confirmed by Leon Ferrara ([id number]) on 08/24/2023 6:17:08 AM Referred By: NO PCP Confirmed By:Leon Ferrara
== END 2023-08-23 13:42 | disposition home or self-care (01) | DRG 310 ==
LOC: ED 01:05 → 1E 03:02